=== PATIENT | male | born 1980 | race African-American/Black ===

== ENCOUNTER 2023-10-03 21:04 | Emergency (ER) | payer SELFPAY ==
[~2023-10-03] VITALS: Ht 185.4 cm; Wt 80.0 kg
[2023-10-03 21:15] VITALS: TEMP 98; O2SAT 99
[2023-10-04 00:07] LABS: EOSINOPHILS % 0.1 % (0.0-5.0); HEMATOCRIT. 38.1 % (42.0-52.0); HEMOGLOBIN. 13.1 g/dL (14.0-18.0); LYMPHOCYTES % 24.5 % (20.0-50.0); MEAN CORPUSCULAR HEMOGLOBIN 31.1 pg (28.0-32.0); MEAN CORPUSCULAR HGB CONC 34.3 g/dL (31.0-37.0); MEAN CORPUSCULAR VOLUME 90.7 fL (80.0-94.0); MEAN PLATELET VOLUME 8.5 fl (7.4-10.4); MONOCYTES % 8.6 % (2.0-8.0); NEUTROPHILS % 65.8 % (40.0-76.0); PLATELET 257 x1000/uL (130-400); RED CELL DISTRIBUTION WIDTH 13.9 % (11.6-14.6); WHITE BLOOD COUNT 7.6 x1000/uL (4.5-11.0)
[2023-10-04 00:32] LABS: ALANINE AMINOTRANSFERASE 11 IU/L (10-49); ALBUMIN 4.8 g/dL (3.2-4.8); ASPARTATE AMINOTRANSFERASE 17 IU/L (<34); BILIRUBIN TOTAL 1.1 mg/dL (0.1-1.0); CALCIUM 9.2 mg/dL (8.7-10.4); CARBON DIOXIDE 28 mEq/L (21-32); CHLORIDE 100 mEq/L (98-107); CREATININE 0.8 mg/dL (0.6-1.3); GLUCOSE 101 mg/dL (70-105); POTASSIUM 3.1 mEq/L (3.5-5.1); PROTEIN TOTAL 7.9 g/dL (6.0-8.3); SODIUM 136 mEq/L (136-145); UREA NITROGEN BLOOD 13 mg/dL (9-23)
[2023-10-04] MEDS: ONDANSETRON 4MG ODT PO ONE ×2 (01:27→01:28)
[2023-10-04] MEDS: SODIUM CHLORIDE 0.9% 1,000 ML IV NR (02:39)
[2023-10-04] MEDS ORDERED: ONDA4TAB50 MT (05:55)
[2023-10-04 06:28] VITALS: BP 128/70; PULSE 63; RESP 17
== END 2023-10-04 06:51 | disposition home or self-care (01) ==
LOC: ER 21:12
DX: A05.9 Bacterial foodborne intoxication, unspecified (principal); R11.2 Nausea with vomiting, unspecified; R19.7 Diarrhea, unspecified; F20.9 Schizophrenia, unspecified; F12.90 Cannabis use, unspecified, uncomplicated
CPT/HCPCS: 99284; 80053; 83690; 85025; 36415; 74176; Q0162